=== PATIENT | female | born 1950 | race Two or more races ===

== ENCOUNTER 2020-06-15 07:38 | Day surgery (SDC) | payer MEDICARE, BC ==
[~2020-06-15] VITALS: Ht 152.4 cm; Wt 52.2 kg
[2020-06-15] VITALS (7 sets, daily range): BP systolic 113–125; BP diastolic 53–72
--- NOTE | 2020-06-15 07:55 | Short Stay Surgery H&P ---
History of Present Illness History of Present Illness Chief Complaint GERDs and screening colonoscopy HPI Daniela Rapp is a 70 year old female who was admitted on for Colon Screening, Gerd Patient History Past Surgeries: (1) History of appendectomy (2) History of Review of Systems Cardiovascular: Reports: no symptoms Respiratory: Reports: no symptoms Skeletal: Reports: no symptoms Gastrointestinal: Reports: no symptoms Genitourinary: Reports: no symptoms Neurologic: Reports: no symptoms Endocrine: Reports: no symptoms Hematologic: Reports: no symptoms Physical Exam Skin: normal HENT: normal Heart: normal Lungs: normal Abdomen: normal Extremities: normal Genitourinary: normal Plan Plan of Care Upper and lower GI endoscopy with biopsy. Preop Interventions None. Summary of Findings See the reports. Attestation Are the patient's medical conditions optimized for surgery? Attestation Response: yes Taj Alba MD Jun 15, 2020 07:55
--- NOTE | 2020-06-15 07:56 | Pre-Procedure Note/Attestation ---
Pre-Procedure Note/Attestation Complete Prior to Procedure Planned Procedure: left Procedure Narrative: Examination of the upper and the lower GI tract via endoscopy. Indications for Procedure Pre-Operative Diagnosis: R/O Gastritis/esophagitis/colon polyps. Attestation I attest that I discussed the nature of the procedure; its benefits; risks and complications; and alternatives (and the risks and benefits of such alternatives), prior to the procedure, with the patient (or the patient's legal industrial sales representative). I attest that, if there was a reasonable possibility of needing a blood transfusion, the patient (or the patient's legal industrial sales representative) was given the [facility] standardized written summary, pursuant to the [place] Blood Safety Act ([place] Health and Safety Code # 1645, as amended). I attest that I re-evaluated the patient just prior to the surgery and that there has been no change in the patient's H&P, except as documented below: Taj Alba MD Jun 15, 2020 07:55
--- NOTE | 2020-06-15 07:57 | Discharge Instructions ---
Discharge Instructions Discharge Instructions Follow up with: Doctor will send you the reports and will talk with you. For Congestive Heart Failure Reminder Report to your physician any weight gain of 5 pounds or more in one week. Taj Alba MD Jun 15, 2020 07:57
[2020-06-15] MEDS ORDERED: Atropine Sulfate 0.4mg/ml inj ONE (08:00)
[2020-06-15] MEDS ORDERED: LR 1000ml ONE (08:00)
[2020-06-15] MEDS ORDERED: VITAMIN B COMP1 EAC2 ORAL (08:05)
[2020-06-15] MEDS ORDERED: Midazolam 2mg/2ml Inj IVP PRN (08:15)
[2020-06-15] MEDS ORDERED: DiphenhydrAMINE 50mg/ml Inj IVP PRN (08:15)
[2020-06-15] MEDS ORDERED: fentaNYL 100 mcg/2 mL IV PRN (08:15)
[2020-06-15] MEDS ORDERED: LR 1000ml 1,000 ML IVLG SCH (08:15)
[2020-06-15] MEDS ORDERED: Atropine Inj 1mg/10ml Syr IVP PRN (08:15)
--- NOTE | 2020-06-15 08:18 | Anethesia Preoperative Eval ---
Anesthesia Pre-op PMH/ROS General Date of Evaluation: Jun 15, 2020 Time of Evaluation: 08:15 Anesthesiologist: isac ASA Score: ASA 2 Mallampati Score Class I : Soft palate, uvula, fauces, pillars visible Class II: Soft palate, uvula, fauces visible Class III: Soft palate, base of uvula visible Class IV: Only hard plate visible Mallampati Classification: Class II Surgeon: paloma Diagnosis: gerd, colon screening Surgical Procedure: egd/colonoscopy Anesthesia History: none Social History: current smoker Family History: no anesthesia problems Allergies: Coded Allergies: PEANUT (Verified Allergy, Severe, swelling, 06/15/20) Uncoded Allergies: chocolate (Allergy, Severe, swelling, 06/15/20) nuts (Allergy, Severe, swelling, 06/15/20) Medications: see eMAR Patient NPO?: Yes Past Medical History Gastrointestinal/Genitourinary: Reports: GERD PSxH Narrative: appendectomy, Anesthesia Pre-op Phys. Exam Physician Exam Last Vital Signs Date Time Temp Pulse Resp B/P (MAP) Pulse Ox O2 Delivery O2 Flow Rate FiO2 06/15/20 08:11 97.7 59 18 123/71 97 Room Air Constitutional: NAD Neurologic: CN 2-12 intact Cardiovascular: RRR Respiratory: CTA Gastrointestinal: S/NT/ND Airway Exam Mallampati Score: Class II MO: full Neck: flexible TMD: 2fb ROM: full Anesthesia Pre-op A/P Labs covid-19 negative results reported per dr[address] dow Risk Assessment & Plan Assessment: asa2 Plan: mac Status Change Before Surgery: No Pre-Antibiotics Drug: Alivia Lopes MD Jun 15, 2020 08:18
--- NOTE | 2020-06-15 09:05 | Endoscopy Procedure Note ---
Endoscopy Procedure Note General Indication for Procedure: GERDs/screning colonoscopy Procedures Performed: EGD - Evidence of small hiatal hernia otherwise normal upper GI endoscopy. Biopsy taken from gastric body per random., colonoscopy - Poor colon prep. Minimal internal internal hemorrhoids; otherwise normal total colonoscopy. Specimen: yes Pt Tolerated Procedure Well: Yes Anesthesia Anesthesiologist: Dr. Poole Anesthesia: moderate sedation Inserted Devices Implant(s) used?: No Quality Quality of Bowel Preparation: Poor Did scope reach the cecum?: Yes Was there any complications?: No GI Core Measures 50 yrs or older w/o bx or poly: Yes 10yrs. F/U recommended: Yes Med reason:<3 yrs.: System Reason:<3 yrs.: Taj Alba MD Jun 15, 2020 09:05
--- NOTE | 2020-06-15 09:19 | Immediate Post-Op Evaluation ---
Immediate Post-Op Evalulation Immediate Post-Op Evalulation Procedure: egd/colonoscopy w/bx Date of Evaluation: Jun 15, 2020 Time of Evaluation: 09:20 IV Fluids: 450ml lr Blood Products: none Estimated Blood Loss: negligible Blood Pressure Systolic: 114 Blood Pressure Diastolic: 67 Pulse Rate: 76 Respiratory Rate: 18 O2 Sat by Pulse Oximetry: 100 Temperature (Fahrenheit): 98.0 Pain Score (1-10): 0 Nausea: No Vomiting: No Complications none Patient Status: awake, reacts, patent Hydration Status: adequate Drug: Alivia Lopes MD Jun 15, 2020 09:19
--- NOTE | 2020-06-15 09:22 | 48 Hour Post Anesthesia Eval ---
Post Anesthesia Evaluation Procedure: egd/colonoscopy w/bx Date of Evaluation: Jun 15, 2020 Time of Evaluation: 09:22 Blood Pressure Systolic: 125 0: 68 Pulse Rate: 64 Respiratory Rate: 18 Temperature (Fahrenheit): 98.0 O2 Sat by Pulse Oximetry: 100 Airway: patent Nausea: No Vomiting: No Pain Intensity: 0 Hydration Status: adequate Cardiopulmonary Status: stable Mental Status/LOC: patient returned to baseline Post-Anesthesia Complications: none Follow-up care needed: N/A Alivia Poole MD Jun 15, 2020 09:22
--- NOTE | 2020-06-15 09:59 | Operative Note - Dictated ---
DATE OF OPERATION: 06/15/2020 SURGEON: Taj Alba MD. PROCEDURE: Total screening colonoscopy. PREOPERATIVE DIAGNOSIS: Screening colonoscopy. POSTOPERATIVE DIAGNOSIS: Evidence of minimal internal hemorrhoids, otherwise complete normal total colonoscopy. Poor colonic preparation. MEDICATION USED: Per Dr. Sims, anesthesiologist. INSTRUMENT: GIF Olympus video colonoscope. DESCRIPTION OF PROCEDURE: The patient after arriving in the endoscopy unit, was told about risks and benefits of the procedure, which she accepted and signed informed consent. At this time, she was put on the left lateral decubitus position. After adequate IV sedation, the scope was gently passed through the anal area which revealed evidence of minimal external hemorrhoidal tag. The entrance of the scope into the rectum and performance of retroflexion maneuver also showed that there was evidence of minimal internal hemorrhoids of no great significance and certainly it was not friable. The rest of the rectum looked completely normal. At this time, the scope was gradually passed through rather redundant left colon, which was filled with liquidy stool and it showed that the colon prep was inadequate and poor. However, there was no any visible polypoid lesion or inflammatory process, polyps, tumors, etc. Constant irrigation of the colon finally made it possible to evaluate the left descending colon as well as the splenic flexure, transverse colon, right hepatic flexure, and finally the scope was guided into the right colon all the way to the base of the cecum. All these areas remained to be completely without any pathology or polyps or tumors or strictures, etc. The base of the cecum was also visualized as well. At this time, within 6 minutes, the scope was gradually pulled out and re-evaluation of the colon did not reveal any other abnormalities. The patient tolerated the procedure well and left the endoscopy room in a good condition. Taj Alba M.D. DR: SYBIL JOB#: [id number] CC:
--- NOTE | 2020-06-15 10:14 | Operative Note - Dictated ---
DATE OF OPERATION: 06/15/2020 PROCEDURE: Esophagogastroduodenoscopy with biopsy. PREOPERATIVE DIAGNOSIS: History of chronic gastroesophageal acid reflux, rule out gastritis, peptic ulcer disease. POSTOPERATIVE DIAGNOSIS: Evidence of hiatal hernia otherwise completely normal upper GI endoscopy. Biopsy was taken per random from gastric body. MEDICATION USED: Per Dr. Sims, anesthesiologist. INSTRUMENT: GIF Olympus upper GI video endoscope. DESCRIPTION OF PROCEDURE: The patient after arriving an endoscopy unit, was told about risks and benefits of the procedure, which she accepted and signed informed consent. At this time, she was put on the left lateral decubitus position. After adequate IV sedation, the scope was gently passed through the cricopharyngeal area, was lodged into the upper esophagus and was gradually advanced towards gastroesophageal junction. The entire length of the esophagus was completely normal without any evidence of abnormality such as esophagitis, ulcers, strictures, polyps, etc. The GE junction also looked normal without any evidence of Yi's however there was evidence of mild/moderate hiatal hernia. However, there was no pathology in it. Subsequently, the scope was advanced into the stomach, gastric cavity was distended with insufflation of air and the examination of the gastric cavity beginning from the fundus all the way to the antrum and pre-pyloric area was done, which revealed normal finding without any particular abnormality such as gastritis, peptic ulcer disease, tumors, polyps, or hemangioma etc. At this time, one random biopsy from gastric body was obtained and subsequently the scope was retroflexed and the area of the gastroesophageal junction was examined in a closer fashion, which revealed normal findings. Finally, the scope was passed through the normal-looking pylorus and first and second portion of duodenum were found to be completely normal. At this time, the scope was pulled out and the procedure was terminated. The patient tolerated the procedure well. Said Aleah Alba DR: SUSAN JOB#: [id number] CC:
== END 2020-06-15 10:15 | disposition home or self-care (01) ==
LOC: GAS 07:38
DX: Z12.11 Encounter for screening for malignant neoplasm of colon (principal); K64.8 Other hemorrhoids; K29.50 Unspecified chronic gastritis without bleeding; K44.9 Diaphragmatic hernia without obstruction or gangrene; Z90.89 Acquired absence of other organs; K21.9 Gastro-esophageal reflux disease without esophagitis
CPT/HCPCS: 43239; 94003; G0121; J0461; J2704; J7120; 94150